=== PATIENT | male | born 1995 | race African-American/Black ===

== ENCOUNTER 2019-05-24 18:26 | Emergency (ER) | payer OTHER ==
[~2019-05-24] VITALS: Ht 175.3 cm; Wt 99.3 kg
[2019-05-24 20:41] VITALS: BP 144/64
[2019-05-24] MEDS ORDERED: HYDROcodone-ACET 10/325MG TAB PO ONE (20:45)
== END 2019-05-24 21:10 | disposition home or self-care (01) ==
LOC: ER 18:26
DX: S16.1XXA Strain of muscle, fascia and tendon at neck level, initial encounter (principal); S80.11XA Contusion of right lower leg, initial encounter; S09.90XA Unspecified injury of head, initial encounter; V43.52XA Car driver injured in collision with other type car in traffic accident, initial encounter; Y93.89 Activity, other specified; Y99.8 Other external cause status; Y92.410 Unspecified street and highway as the place of occurrence of the external cause
CPT/HCPCS: 70450; 71250; 72125; 73562; 73610